=== PATIENT | female | born 1985 | race Caucasian/White ===

== ENCOUNTER 2022-03-24 11:36 | Emergency (ER) | payer OTHER, SELFPAY ==
[2022-03-24 11:50] VITALS: BP 148/95; PULSE 75; RESP 16; TEMP 37; O2SAT 100
--- NOTE | 2022-03-24 11:50 | ED.ARRPALP ---
HPI - Arrhythmia/Palpitations General Chief Complaint: Arrhythmia/Palpitations Stated Complaint: trouble breathing Time Seen by Provider: 03/24/22 11:51 Source: patient Mode of arrival: ambulatory Limitations: no limitations History of Present Illness HPI narrative: Ms. Laws is a 36-year-old female patient presenting to the clinic today with complaints of intermittent palpitations. She reports that she had a lot of palpitations last night and felt as though she was having PVCs. She reports that when she was having these palpitations she felt as though it took her breath away. She denies having symptoms currently. She denies any chest pain or dizziness. She reports that she has had increased stress over the last few weeks. 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 Related Data Home Medications Medication Instructions Recorded Confirmed fluoxetine 20 mg tablet 40 mg PO DAILY 11/26/20 11/26/20 Allergies Allergy/AdvReac Type Severity Reaction Status Date / Time No Known Allergies Allergy Verified 11/26/20 09:21 Review of Systems Review of Systems: Pertinent positives per HPI. Patient denies any fever, chills, rash, headache, visual changes, dizziness, cough, runny nose, sore throat, chest pain, nausea, vomiting, diarrhea, constipation, abdominal pain, or any urinary issues. [facility] Past Medical History Medical History History of abnormal uterine bleeding Uterine ablation PMDD (premenstrual dysphoric disorder) Social History Social History Smoking status: Never smoker Second hand tobacco smoke exposure: No Alcohol intake: current Comments At the time of my signature, I reviewed and agree with the nursing past medical, surgical, social, and family history. There is no relevant family history pertinent to the patient complaint. Exam Narrative: General: Well-developed, well nourished, in no apparent distress Head: Normocephalic, atraumatic. Cardio: Regular rate and rhythm, s1 and s2 normal, no murmur appreciated. Sinus arrhythmia Resp: Clear to auscultation bilaterally, no rhonchi, rales, wheezing or rubs. Extremities: No deformity, no edema, no cyanosis, capillary refill less than 2 seconds, peripheral pulses palpable and strong. Integumentary: [place], warm, and dry, intact without lesion, no rashes. Course Course Emergency Course: Portions of this record may have been created with voice recognition software. Level of Care: Express Care Visit Vital Signs Vital signs: Vital signs reviewed MDM - Arrhythmia/Palpitations MDM Narrative Medical decision making narrative: At the time of visit patient is resting comfortably on the exam table. She denies having any current palpitations. I suggest that the patient follow-up with her PCP to obtain a order for a Holter monitor. Also recommend decreasing stress. Supportive measures were discussed with the patient and she voiced understanding of discharge instructions and agrees to treatment plan. Differential Diagnosis Differential diagnosis: Likely palpitations, anxiety, sinus tachycardia, artial fibrillation, artial flutter, ventricular premature beats, supraventricular tachycardia, ventricular tachycardia, WPW and other ECG Data EKG #1: Attestation: I personally reviewed and interpreted this ECG as follows: ECG completion date: 03/24/22 Interpretation: EKG shows sinus rhythm with sinus arrhythmia with a heart rate of 75 bpm without ectopy. IN intervals 133 ms, QRS duration 78 ms, QT?QTc is 395-423 ms, P?R?T axes 49-66-30 Discharge Plan Discharge Clinical Impression: Palpitations Patient Disposition: Home, Self-Care Condition: Stable Instructions: Antibiotic Form, Heart Palpitations (ED) Additional Instructions
--- NOTE | 2022-03-24 11:51 | ECG_ITS ---
Measurements Intervals [place] Rate: 75 P: 49 ID: 133 QRS: 66 QRSD: 78 T: 30 QT: 395 QTc: 441 Interpretive Statements SINUS RHYTHM WITH SINUS ARRHYTHMIA BORDERLINE ST ABNORMALITY- ANT/INF LEADS BORDERLINE ECG NO PREVIOUS ECG AVAILABLE FOR COMPARISON Electronically Signed On 03-26-2022 11:52:57 CDT by Golden Markham D.O.
== END 2022-03-24 12:17 | disposition home or self-care (01) ==
PROVIDERS: Emergency Provider Nurse Practitioner Family
DX: R00.2 Palpitations (principal)
CPT/HCPCS: 93005; 99213; G0463

== ENCOUNTER 2022-07-08 17:48 | Emergency (ER) | payer OTHER, SELFPAY ==
[2022-07-08] VITALS (12 sets, daily range): BP systolic 107–131; BP diastolic 73–83; PULSE 58–100; RESP 12–18; TEMP 36.7; O2SAT 99–100
--- NOTE | ~2022-07-08 | CT_ITS ---
EXAMINATION: CT brain wo con DATE: 07/08/2022 21:47 INDICATION: dizziness . TECHNIQUE: Computed tomography (CT) of the head was performed without intravenous contrast. The mA wa s adjusted according to patient size. Iterative reconstruction technique was employed. The dose-lengt h product was 605.33 mGy-cm. COMPARISON: None. FINDINGS: No acute intracranial hemorrhage or extra-axial fluid collection. No hydrocephalus, mass, or herniation. No acute ischemic infarct. Unremarkable dural venous sinus attenuation. No acute osseous abnormality. The aerated spaces are clear. IMPRESSION: No acute intracranial process. Reviewed, dictated and finalized at location K. 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
--- NOTE | 2022-07-08 19:25 | ECG_ITS ---
Measurements Intervals [place] Rate: 76 P: 82 IA: 133 QRS: 76 QRSD: 78 T: -27 QT: 337 QTc: 379 Interpretive Statements SINUS RHYTHM WITH SINUS ARRHYTHMIA NONSPECIFIC ST & T-WAVE ABNORMALITY COMPARED TO ECG 03/24/2022 11:53:46 T-WAVE ABNORMALITY NOW PRESENT Electronically Signed On 07-09-2022 11:42:32 [employer]PECT[employer] by Katy Durham M.D.
[2022-07-08 20:07] LABS: Basophils Absolute Auto 0.1 K/mm3 (0.0-0.1); Basophils Percent Auto 1.3 % (0.2-1.2); Eosinophils Absolute Auto 0.1 K/mm3 (0-0.3); Eosinophils Percent Auto 1.7 % (0-4.4); Hematocrit 38.8 % (37.0-47.0); Immature Granulocyte Absolute 0.01 K/mm3 (0.00-0.031); Immature Granulocyte Percent A 0.2 % (0-0.5); Lymphocytes Absolute Auto 2.08 K/mm3 (0.9-3.2); Lymphocytes Percent Auto 39.9 % (18.3-44.2); Mean Corpuscular HGB Conc 33.5 g/dl (32-36); Mean Corpuscular Hemoglobin 32.2 pg (26-34); Mean Platelet Volume 10.6 fl (7.4-10.4); Monocytes Absolute Auto 0.4 K/mm3 (0.1-0.6); Monocytes Percent Auto 7.9 % (2.6-8.5); Neutrophils Absolute Auto 2.6 K/mm3 (1.3-6.7); Platelet Count Result 214 k/mm3 (150-375); Red Blood Count 4.04 M/mm3 (4.2-5.4); Red Cell Distribution Width 12.3 % (11.5-14.5); White Blood Count 5.2 K/mm3 (4.5-10.0)
--- NOTE | 2022-07-08 20:13 | PC.NURSE ---
patient here with dizziness since 1 am states it is hard to get up and move. patients spouse states she had a similar episode over the summer that she believes was a migraine
--- NOTE | 2022-07-08 20:33 | ED.DIZZY ---
HPI - Dizziness General Chief Complaint: Dizziness Stated Complaint: dizzy Time Seen by Provider: 07/08/22 20:33 Source: patient Mode of arrival: wheelchair Limitations: no limitations History of Present Illness HPI Narrative: Patient is a 37-year-old female presenting to the emergency department for evaluation of dizziness. Patient reports dizziness began this morning when she woke up to turn off her alarm clock, turning her head suddenly which caused a spinning sensation. Patient reports a spinning sensation that is worse with movement. She denies loss of vision, focal weakness or numbness. She denies nausea, vomiting. Patient denies any chest pain, lightheadedness. Patient has taken Dramamine today without improvement in her symptoms. She denies fever, chills, infectious type symptoms such as cough, dysuria or hematuria. Patient reports history of this previously over the summer which did resolve and was not as severe as an episode. Patient denies any recent upper respiratory infection or viral type symptoms. Her and son did recently test positive for influenza A but patient has never been symptomatic. She denies ear pain, discharge or ear fullness. No difficulty hearing. No facial asymmetry, facial droop, dysarthria. Patient reports difficulty with ambulation secondary to the dizziness with movement. Symptoms do improve with rest. Patient does report a mild headache. She denies thunderclap sensation. Patient also endorses feeling generally weak without focal weakness or numbness. Related Data Home Medications Medication Instructions Recorded Confirmed fluoxetine 20 mg tablet 40 mg PO DAILY 11/26/20 11/26/20 Allergies Allergy/AdvReac Type Severity Reaction Status Date / Time No Known Allergies Allergy Verified 07/08/22 18:12 Review of Systems Review of Systems: CONSTITUTIONAL: Denies fever, chills, or sweats. EYES: Denies visual changes, redness, or discharge. ENT: Denies rhinorrhea, congestion, sore throat, or otalgia. CARDIOVASCULAR: Denies chest pain, palpitations, or edema. RESPIRATORY: Denies cough or dyspnea. GASTROINTESTINAL: Denies abdominal pain, nausea, vomiting, or diarrhea. GENITOURINARY: Denies dysuria or hematuria. SKIN: Denies rash or itching. MUSCULOSKELETAL: Denies back pain, joint pain, or myalgia. NEUROLOGIC: Patient reports mild headache, she reports generalized weakness without focal weakness or numbness PSYCHIATRIC: Denies anxiety or depression. [facility] Past Medical History Medical History History of abnormal uterine bleeding Uterine ablation PMDD (premenstrual dysphoric disorder) Social History Social History Smoking status: Never smoker Second hand tobacco smoke exposure: No Alcohol intake: current Exam Narrative: GENERAL: Awake, alert, conversant HEAD: Normocephalic, atraumatic. EYES: PERRLA and EOMI. Pt with horizontal nystagmus in right eye, non direction changing. ENT: Nares clear, no rhinorrhea or epistaxis. Mucous membranes moist. NECK: Supple. CHEST: No respiratory distress, breathing even and non labored HEART: Regular rate, sinus rhythm ABDOMEN:Non distended, non tender EXTREMITIES: Normal range of motion. No edema. SKIN: Warm, dry, no rash. NEURO:No focal deficits. Alert and oriented x3. Finger to nose intact bilaterally. EOMs intact without nystagmus. No facial droop/asymmetry noted bilaterally. Grimace intact. Intact sensation in face. Hearing intact bilaterally. Shoulder shrug intact. Strength 5/5 bilateral upper extremities. Strength 5/5 bilateral lower extremities. Reflexes 2+ patellar. Heel to peace intact bilaterally. Ambulatory exam deferred. NIH stroke scale score 0. Course Vital Signs Vital signs: Vital Signs Temperature 36.7 C 07/08/22 18:06 Pulse Rate 100 07/08/22 18:06 Respiratory Rate 18 07/08/22 18:06 Blood Pressu
[2022-07-08 20:38] LABS: Alanine Aminotransferase 15 U/L (6-35); Albumin Level 4.3 g/dL (3.5-5.1); Alkaline Phosphatase 42 U/L (38-126); Anion Gap 5 mmol/L (8-16); Aspartate Amino Transferase 27 U/L (14-36); Bilirubin,Total 0.5 mg/dL (0.2-1.3); Blood Urea Nitrogen 9 mg/dL (7-17); Calcium 8.4 mg/dL (8.4-10.2); Carbon Dioxide 28 mmol/L (22-30); Chloride 103 mmol/L (98-107); Estimated CRCL calculation 72 ml/min; Estimated Glomerular Filt Rate > 60; Glucose 96 mg/dL (65-110); Potassium 3.9 mmol/L (3.4-5.0); Sodium 136 mmol/L (137-145)
[2022-07-08 21:30] LABS: Add Urine Microscopic? YES; Appearance Urine Clear (Clear); Bilirubin Urine Negative (Negative); Blood Urine 1+ (Negative); Color Urine Light Yellow (Yellow); Glucose Urine UA Negative (Negative); Ketones Urine Trace mg/dL (Negative); Leukocyte Esterase Ur 2+ LEU/UL (Negative); Nitrate Urine Negative (Negative); Protein Urine Negative (Negative); Specific Grav Ur 1.015 (1.001-1.035); Urobilinogen Urine 0.2 mg/dL (<2.0); pH Urine 6.5 (5.0-9.0)
[2022-07-08] MEDS: MECLIZINE HCL 25 MG TABLET PO (21:37)
[2022-07-08] MEDS: diphenhydrAMINE HCl INJ 50 MG/ML VIAL 25 MG IV PUSH (21:37)
[2022-07-08] MEDS: SODIUM CHLORIDE 0.9% IV 1,000 ML 999 ML IV CONT (21:37)
[2022-07-08 21:38] LABS: Bacteria Urine Trace /hpf; Mucus Urine Rare /lpf; RBC Urine 0-2 /hpf (0-2); Squamous Epithelial Cell Urine Few /hpf (Few); WBC Urine 21-30 /hpf
[2022-07-08 23:55] LABS: Free T4 Free Thyroxine Reflex 1.08 ng/dL (0.78-2.19)
[2022-07-09 03:10] LABS: Total Triiodothyronine (T3) 1.29 NG/ML (0.97-1.69)
== END 2022-07-08 22:37 | disposition home or self-care (01) ==
PROVIDERS: Emergency Provider Emergency Medicine; PCP Family Medicine
DX: H81.10 Benign paroxysmal vertigo, unspecified ear (principal); R94.31 Abnormal electrocardiogram [ECG] [EKG]
CPT/HCPCS: 36415; 70450; 80053; 81001; 84439; 84443; 84480; 85025; 87086; 87088; 93005; 96361; 96374; 99284; A9270; J1200; J7030

== ENCOUNTER 2023-03-03 17:23 | Emergency (ER) | payer OTHER, SELFPAY ==
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
[2023-03-03 17:38] VITALS: BP 136/74; PULSE 62; RESP 18; TEMP 36.6; O2SAT 100
[2023-03-03 17:39] VITALS: BP 136/74; PULSE 62; RESP 18; TEMP 36.6; O2SAT 100
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
== END 2023-03-03 18:45 | disposition home or self-care (01) ==
PROVIDERS: Emergency Provider Nurse Practitioner Family; PCP Family Medicine
DX: S16.1XXA Strain of muscle, fascia and tendon at neck level, initial encounter (principal); V49.40XA Driver injured in collision with unspecified motor vehicles in traffic accident, initial encounter
CPT/HCPCS: 72050; 99213; G0463

== ENCOUNTER 2023-03-09 11:46 | Outpatient (CLI) | payer OTHER, SELFPAY ==
[2023-03-09 19:45] LABS: Alanine Aminotransferase 16 U/L (6-35); Albumin Level 4.4 g/dL (3.5-5.1); Alkaline Phosphatase 47 U/L (38-126); Anion Gap 7 mmol/L (8-16); Aspartate Amino Transferase 30 U/L (14-36); Bilirubin,Total 0.5 mg/dL (0.2-1.3); Blood Urea Nitrogen 13 mg/dL (7-17); Calcium 9.1 mg/dL (8.4-10.2); Carbon Dioxide 29 mmol/L (22-30); Chloride 101 mmol/L (98-107); Estimated Glomerular Filt Rate > 60; Glucose 89 mg/dL (65-110); Potassium 4.3 mmol/L (3.4-5.0); Sodium 137 mmol/L (137-145)
[2023-03-09 20:33] LABS: Basophils Absolute Auto 0.1 K/mm3 (0.0-0.1); Basophils Percent Auto 1.3 % (0.2-1.2); Eosinophils Absolute Auto 0.1 K/mm3 (0-0.3); Eosinophils Percent Auto 1.5 % (0-4.4); Hematocrit 40.2 % (37.0-47.0); Hemoglobin 13.1 g/dL (12.0-15.0); Immature Granulocyte Absolute 0.02 K/mm3 (0.00-0.031); Immature Granulocyte Percent A 0.3 % (0-0.5); Lymphocytes Absolute Auto 2.26 K/mm3 (0.9-3.2); Lymphocytes Percent Auto 33.4 % (18.3-44.2); Mean Corpuscular HGB Conc 32.6 g/dl (32-36); Mean Corpuscular Hemoglobin 32.4 pg (26-34); Mean Corpuscular Volume 99.5 fl (80-100); Mean Platelet Volume 12.1 fl (7.4-10.4); Monocytes Absolute Auto 0.6 K/mm3 (0.1-0.6); Monocytes Percent Auto 8.7 % (2.6-8.5); Neutrophils Absolute Auto 3.7 K/mm3 (1.3-6.7); Neutrophils Percent Auto 54.8 % (45.5-73.1); Platelet Count Result 184 k/mm3 (150-375); Red Blood Count 4.04 M/mm3 (4.2-5.4); White Blood Count 6.8 K/mm3 (4.5-10.0)
== END 2023-03-09 11:47 | disposition home or self-care (01) ==
PROVIDERS: PCP Family Medicine; Visit Provider Nurse Practitioner Family
DX: Z00.00 Encounter for general adult medical examination without abnormal findings (principal)
CPT/HCPCS: 36415; 80053; 84443; 85025

== ENCOUNTER 2023-11-01 07:21 | Outpatient (CLI) | payer OTHER, SELFPAY ==
--- NOTE | ~2023-11-01 | MM_ITS ---
EXAMINATION: MM screening milena BI w carlos HISTORY: Screening mammogram TECHNIQUE: Craniocaudal and mediolateral oblique 3-D tomosynthesis images were obtained and synthetic 2-D images were generated. CAD analysis was submitted and interpreted. COMPARISON: No prior mammogram is available for comparison at this institution. BREAST PARENCHYMAL COMPOSITION: The breasts are extremely dense, which lowers the sensitivity of mamm ography. FINDINGS: There is no evidence of suspicious mass, calcification, or architectural distortion to sugg est malignancy in either breast. There has been no suspicious interval change. IMPRESSION: 1. No mammographic evidence of malignancy. 2. Recommend routine screening mammography in one year. BI-RADS Category 1: Negative Reviewed, dictated and finalized at location A.
== END 2023-11-01 07:22 | disposition home or self-care (01) ==
LOC: ANHIMG 07:23
PROVIDERS: PCP Family Medicine
DX: Z12.31 Encounter for screening mammogram for malignant neoplasm of breast (principal)
CPT/HCPCS: 77063; 77067

== ENCOUNTER 2024-08-31 08:24 | Emergency (ER) | payer OTHER, SELFPAY ==
--- NOTE | 2024-08-31 08:47 | ED_ITS ---
HPI - URI/Sore Throat General Chief Complaint: Upper Respiratory Infection Stated Complaint: Cough Time Seen by Provider: 08/31/24 08:47 Source: patient Mode of arrival: ambulatory Limitations: no limitations History of Present Illness HPI Narrative: 39-year-old female presents with complaint of cough, chest congestion, fatigue for 4 days. Afebrile. 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 Patient states listens to her lungs and thought that she heard and ?effusion ?to left lower lung. No chest pain or shortness of breath. All systems reviewed and negative except as noted above. Related Data Home Medications ?Medication ?Instructions ?Recorded ?Confirmed ?Last Taken ?Type fluoxetine 20 mg tablet 40 mg PO DAILY 11/26/20 08/31/24 Unknown History Allergies Allergy/AdvReac Type Severity Reaction Status Date / Time No Known Allergies Allergy Verified 08/31/24 08:34 Review of Systems Review of Systems: CONSTITUTIONAL: Denies fever, chills, or sweats. Reports fatigue. EYES: Denies visual changes, redness, or discharge. ENT: Denies rhinorrhea, congestion, sore throat, or otalgia. CARDIOVASCULAR: Denies chest pain, palpitations, or edema. RESPIRATORY: Reports cough. Denies dyspnea. GASTROINTESTINAL: Denies abdominal pain, nausea, vomiting, or diarrhea. GENITOURINARY: Denies dysuria or hematuria. SKIN: Denies rash or itching. MUSCULOSKELETAL: Denies back pain, joint pain, or myalgia. NEUROLOGIC: Denies headache, numbness, or weakness. PSYCHIATRIC: Denies anxiety or depression. All other systems reviewed are negative, except as documented in HPI. [facility] Past Medical History Medical History (Updated 08/31/24 @ 08:51 by Ronna Cabral NP) Basal cell carcinoma Melanoma History of abnormal uterine bleeding Uterine ablation PMDD (premenstrual dysphoric disorder) Social History Social History (Updated 03/08/23 @ 14:58 by Val LINARESA, RMA) Smoking status: Never smoker Second hand tobacco smoke exposure: No Alcohol intake: current Substance use: never Lack of Transportation: No Lack of Food: Never True Current Housing: I Have Housing Concerned About Future Housing: No Difficulty Paying Gas/Electric Bills: No Difficulty Paying for Meds: No Currently Unemployed: No Education: Bachelor's Degree Difficulty w/ Childcare or Family Care: No Comments At time of signature, agree with nursing past medical, surgical, social and family history. There is no relevant family history pertinent to the presenting complaint. Exam Narrative: GENERAL: This is a well-nourished, well-developed patient, in no apparent distress. HEAD: normocephalic, atraumatic. EYES: PERRL. Sclera clear/white. Vision is grossly intact. EARS: External ears normal, auditory canals clear and without drainage, TMs normal without perforation. Hearing grossly intact. NOSE: External nose normal with no obvious nasal discharge, nares without redness, no rhinorrhea. THROAT: Mucous membranes moist, posterior pharynx clear. NECK: Neck supple, non-tender without lymphadenopathy, masses or thyromegaly. CARDIOVASCULAR: Regular rate and rhythm without murmurs, gallops, or rubs. RESPIRATORY: Clear to auscultation. Breath sounds equal bilaterally. No wheezes, rales, or rhonchi. SKIN: warm, Dry, intact with no suspicious lesions or rash, good texture and turgor. NEURO: awake, alert, and oriented to person, place and time. There were no obvious focal neurologic abnormalities. EXTREMITIES: No joint tenderness, effusion, or edema noted. Course Course Level of Care: Express Care Visit Vital Signs Vital signs: Reviewed MDM - URI/Sore Throat MDM Narrative Medical decision making narrative: Negative COVID, influenza test. Patient is well-appearing, nontoxic. Lungs clear to auscultation. Hemodynamically stable. Recommend [id number] medications to treat viral symptoms. Patient is aware of diagnosis, understands and agrees to treatment plan. Anticipatory guidance given. Patient agrees to follow-up as directed and is a stover of reasons to seek care at the emergency department. Portions of this record may have been created with voice recognition software Differential Diagnosis Differential diagnosis: Likely upper respiratory infection, sinusitis, viral infection, bronchitis and influenza Lab Data Labs: Lab Results 08/31/24 Range/Units 08:48 POC Influenza A Ag Negative (Negative) POC Influenza B Ag Negative (Negative) POC SARS CoV-2 Ag Negative (Negative) Discharge Plan Discharge Clinical Impression: Viral upper respiratory tract infection with cough Patient Disposition: Home, Self-Care Condition: Stable Instructions: Upper Respiratory Infection (ED) Additional Instructions: Your COVID and influenza test were negative today. Your symptoms are viral and may last 10-14 days. Take Tylenol or ibuprofen every 6-8 hours as needed for pain and fever. Take medications as prescribed. Drink at least 64 oz water a day. Place cool mist humidifier in bedroom where you sleep. Follow-up with your primary care physician if symptoms are not improving. Patient Language: Chinese Prescriptions: New benzonatate 200 mg capsule 200 mg PO TID PRN (Reason: cough) Qty: 20 0RF methylprednisolone [Medrol (Keyshawn)] 4 mg tablets,dose pack See Rx Instructions PO .COMPLEX Qty: 21 0RF Rx Instructions: orally per package directions No Action ibuprofen 600 mg tablet 600 mg PO Q6H PRN (Reason: pain) Qty: 30 0RF cyclobenzaprine 10 mg tablet 10 mg PO Q8H PRN (Reason: muscle spasm) Qty: 20 0RF fluoxetine 20 mg tablet 40 mg PO DAILY meclizine [Medi-Meclizine] 25 mg tablet 25 mg PO BID PRN (Reason: dizziness) 10 Days Qty: 20 0RF Follow-up/Referrals: Tony Armenta MD [Primary Care Provider] - Time of Disposition: 08:51
[2024-08-31 08:50] LABS: EDCOVIDSCREEN Negative (Negative); EDINFLUASCREEN Negative (Negative); EDINFLUBSCREEN Negative (Negative)
== END 2024-08-31 09:02 | disposition home or self-care (01) ==
PROVIDERS: Emergency Provider Nurse Practitioner Family; PCP Family Medicine
DX: J06.9 Acute upper respiratory infection, unspecified (principal); R05.9 Cough, unspecified; Z20.822 Contact with and (suspected) exposure to COVID-19; Z85.820 Personal history of malignant melanoma of skin; Z85.828 Personal history of other malignant neoplasm of skin
CPT/HCPCS: 87426; 87804; 99213; G0463

== ENCOUNTER 2024-11-09 16:14 | Outpatient (CLI) | payer OTHER, SELFPAY ==
--- NOTE | ~2024-11-09 | MM_ITS ---
EXAMINATION: MM screening milena BI w carlos HISTORY: Screening TECHNIQUE: Craniocaudal and mediolateral oblique 3-D tomosynthesis images were obtained and synthetic 2-D images were generated. CAD analysis was submitted and interpreted. COMPARISON: 11/01/2023 BREAST PARENCHYMAL COMPOSITION: Dense: The breasts are extremely dense, which lowers the sensitivity of mammography. FINDINGS: There is no evidence of suspicious mass, calcification, or architectural distortion to sugg est malignancy in either breast. There has been no suspicious interval change. IMPRESSION: 1. No mammographic evidence of malignancy. 2. Recommend routine screening mammography in one year. BI-RADS Category 1: Negative Reviewed, dictated and finalized at location B.
--- OUTSIDE RECORDS SUMMARY | 2024-11-09 16:16 | XMS_ITS | Clinical Summary ---
Author Organization [facility] Address [address] [place] [address] Care Team Providers Care Assembler Musical Equipment Name Role Phone Андрей Armenta MD Primary Care Provider Source Comments [facility],non-owned Affiliates and Associated Physician Practices is amultiple site organization consisting of ambulatory clinics and hospital sitesin [place], [place], [place] and [place]. This disclosure is being madepursuant to the Care Everywhere program and may not contain all information available regarding this patient. Last updated 18.[facility] Allergies No known active allergies Medications * Be aware that medications may not be up to date on this document. Alwaysverify current medications with the patient. 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 Encounters Date Type Department Care Team Description 09/05/2024 3:10 PM NUT PROCESS HELPER Office Visit [facility] - Dermatology [address] [place] [phone] Mando Juarez MD Multiple benign melanocytic nevi of upper and lower extremities and trunk (Primary Dx); Solar lentiginosis; Seborrheic keratosis; History of nonmelanoma skin cancer; Actinic keratosis; History of melanoma in situ 09/05/2024 Travel from Last 3 Months Immunizations Immunization Administration Dates Next Due INFLUENZA VACCINE 05/16/2022 Family History Medical History Relation Name Comments Cancer - Skin, Melanoma Father Asthma Neg Hx CVA Neg Hx Cancer - Breast Neg Hx Cancer - Other Neg Hx Cancer - Skin, Non Melanoma Neg Hx Eczema Neg Hx Hemophilia Neg Hx Psoriasis Neg Hx Relation Name Status Comments Father Social History Tobacco Use Types Packs/Day Years Used Date Smoking Tobacco: Never Smokeless Tobacco: Never Tobacco Cessation:Counseling Given: Not Answered Alcohol Use Standard Drinks/Week Comments Yes 0 (1 standard drink = 0.6 oz pur e alcohol) Comments No Sex and Gender Information Value Date Recorded Sex Assigned at Not on file Legal Sex Female 9:28 AM CDT Gender Identity Not on file Sexual Orientation Not on file Last Filed Vital Signs Vital Sign Reading Time Taken Comments Blood Pressure 111/62 05/01/2013 2:45 PM CDT Pulse 83 05/01/2013 1:34 PM CDT Temperature 36.9 C (98.4 F) 05/01/2013 1:34 PM CDT Respiratory Rate 16 05/01/2013 1:34 PM CDT Oxygen Saturation 99% 05/01/2013 2:45 PM CDT Inhaled Oxygen Concentration - - Weight 52.2 kg (115 lb) 04/28/2013 10:38 AM CDT Height 170.2 cm (5' 7 ) 04/28/2013 10:38 AM CDT Body Mass Index 18.01 04/28/2013 10:38 AM CDT Plan of Treatment Upcoming Encounters Date Type Department Care Team (Late st Contact Info) Description 03/06/2025 2:00 PM CDT Office Visit [facility] - Dermatology [address] [place] [phone] Mando Juarez MD [address] [place] [address] [address] [place] [address] Health Maintenance Due Date Last Done Comments LIPID TESTING 1983 MAMMOGRAM 1983 PAP SMEAR 1983 HIV SCREENING 1998 HEPATITIS C SCREENING 04/16/2001 DTAP/TDAP/TD VACCINES (1 - Tdap) 2002 HEPATITIS B VACCINE (1 of 3 - 19+ 3-dose series) 2002 COVID-19 VACCINE (1 - 2023-2 5 season) 2024 DEPRESSION SCREENING 07/26/2024 INFLUENZA VACCINE (Season Ended) 2025 05/16/20 22 ZOSTER VACCINE (1 of 2) 2033 HIB VACCINE Aged Out No longer eligi ble based on patient's age to complete this topic HPV VACCINE Aged Out No longer eligi ble based on patient's age to complete this topic MENINGOCOCCAL (Group B) VACC INE SHARED DECISION-MAKING Aged Out No longer eligibl e based on patient's age to complete this topic MENINGOCOCCAL GROUPS A/C/Y/W VACCINE Aged Out No longer eligible b ased on patient's age to complete this topic PNEUMOCOCCAL VACCINE Aged Out No long er eligible based on patient's age to complete this topic Procedures Procedure Name Priority Date/Time Associated Diagnosis Comments MS DESTROY PREMALIG LESION, 2-14 Routine 09/05/2024 3:45 PM NUT PROCESS HELPER Actinic keratosis MS DESTROY PREMALIG LESION, 1ST LESION Routine 09/05/2024 3:44 PM NUT PROCESS HELPER Actinic keratosis from Last 3 Months Results * MS DESTROY PREMALIG LESION, 2-14 (09/05/2024 3:45 PM NUT PROCESS HELPER) Narrative Mando Juarez MD - 09/05/2024 3:45 PM NUT PROCESS HELPER Pippa Cardona MD 09/05/2024 3:45 PM Diagnosis and treatment options discussed. Cryotherapy (Liquid Nitrogen) to 2 lesion(s) for 5-7 seconds each. Number of cycles: 1. Wound care reviewed. Location: right cheek x2 Pippa Cardona MD [facility] Dermatology Resident us Mando Juarez MD PROCEDURE/MINOR SURGICAL ORDERA BLES Final Result * MS DESTROY PREMALIG LESION, 1ST LESION (09/05/2024 3:44 PM NUT PROCESS HELPER) Narrative Mando Juarez MD - 09/05/2024 3:44 PM NUT PROCESS HELPER Pippa Cardona MD 09/05/2024 3:45 PM error do not bill. Mando Juarez MD PROCEDURE/MINOR SURGICAL ORDERA BLES Final Result from Last 3 Months Insurance Care Teams Assembler Musical Equipment Relationship Specialty Start Date End Date Андрей Armenta MD [address] [place] [address] PCP - General 10/18/21
--- OUTSIDE RECORDS SUMMARY | 2024-11-09 16:16 | XMS_ITS | Clinical Summary ---
Author Organization [facility] Address [address] [place] [address] Care Team Providers Care Graphite Grinder Name Role Phone Андрей Armenta MD Primary Care Provider Allergies No known active allergies Medications multivitamin tablet Take 1 tablet by mouth nightly Active FLUoxetine (PROzac) 20 mg tabletIndicatio ns:PMDD (premenstrual dysphoric disorder) TAKE 1 TABLET DAILY 90 tablet 2 09/18/2024 Active Active Problems Problem Noted Date Diagnosed Date Sunburn of first degree 12/23/2021 Neoplasm of uncertain behavior of skin 2 Vascular birthmark 03/16/2020 Menorrhagia with regular cycle 11/22/2018 Overview (11/22/2018): Added automatically from request for surgery [id number] Abnormal uterine bleeding (AUB) 10/29/2017 Dysmenorrhea 10/29/2017 Night sweats 10/29/2017 Multiple benign melanocytic nevi of upper and lower extremities and trunk 03/23/2017 Seborrheic keratoses 03/23/2017 Family history of melanoma 03/20/2016 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 Encounter for routine gynecological examination 06/23/2012 Surgical History Surgery Date Site/Laterality Comments COLON SURGERY Colon Surgery - (Added by TW Conv) [place] LITHOTRIPSY XTRCORP SHOCK WAVE Renal Lithotripsy - (Added by TW Conv) ABLATION MELANOMA RESECTION 10/24/2021 - 11/22/2021 Medical History Medical History Date Comments Personal history of other di seases of the female genital tract History of ovarian cyst - (A dded by TW Conv) Pre-menstrual mood disorder PONV (postoperative nausea and vomiting) Basal cell adenoma Family History Medical History Relation Name Comments No Known Problems Father No Known Problems Mother Relation Name Status Comments Father Mother Social History Tobacco Use Types Packs/Day Years Used Date Smoking Tobacco: Never Smokeless Tobacco: Never Tobacco Cessation:Counseling Given: Not Answered Alcohol Use Standard Drinks/Week Comments Yes 0 (1 standard drink = 0.6 oz pur e alcohol) 6 DRINKS/WEEK AUDIT-C Answer Date Recorded Q1: How often do you have a drink containing alc ohol? 2-3 times a week 06/09/2023 Q2: How many drinks containi ng alcohol do you have on a typical day when you are drinking? 3 or 4 06/09/2023 Q3: How often do you have si x or more drinks on one occasion? Never 06/09/2023 Exercise Vital Sign Answer Date Recorde d On average, how many days pe r week do you engage in moderate to strenuous exercise (like a brisk walk)? 0 days 01/25/2020 On average, how many minutes do you engage in exercise at this level? 0 min 01/25/2020 Comments No Sex and Gender Information Value Date Recorded Sex Assigned at Not on file Legal Sex Female 4:52 AM DRYWALL TAPER Gender Identity Female 03/24/2022 10:59 AM CDT Sexual Orientation Straight 03/24/2022 10 :59 AM CDT Obstetrics History Para Term AB IAB SAB Ectopic Multiple Livin g Live Births 2 2 2 2 2 Date Outcome GA Total Labor Labor/2nd/3rd Weight Sex Type Anes PTL Alessandra A1 A5 Name Clin 2009 Term M Vag-S pont Living 2010 Term F Vag-S pont Living Last Filed Vital Signs Vital Sign Reading Time Taken Comments Blood Pressure 106/70 06/21/2024 10:06 AM DRYWALL TAPER Pulse 65 06/21/2024 10:06 AM DRYWALL TAPER Temperature 36 C (96.8 F) 12/20/2018 10:27 AM CDT Respiratory Rate 21 12/20/2018 11:10 AM CDT Oxygen Saturation 99% 12/20/2018 11:10 AM CDT Inhaled Oxygen Concentration - - Weight 54.9 kg (121 lb) 06/21/2024 10:06 AM DRYWALL TAPER Height 170.2 cm (5' 7 ) 06/21/2024 10:06 AM DRYWALL TAPER Body Mass Index 18.95 06/21/2024 10:06 AM DRYWALL TAPER Plan of Treatment Health Maintenance Due Date Last Done Comments Breast Cancer Screening-Mammogram 1983 Depression Screening 1983 Hepatitis C Screening 1983 Varicella Vaccines (1 of 2 - 13+ 2-dose series) 1996 Cervical Cancer Screening 01/24/2021 01/25/2020, 04/2015 Influenza Vaccine (Season Ended) 2025 05/16/2022 Regular Well Visit/Exam 18-64 06/21/2025 06/21/2024, 06/09/2023, 04/07/2022, Additional history exists DTaP/Tdap/Td Vaccine (3 - Td or Tdap) 01/09/2029 01/09/2019, 05/17/2013 Hepatitis B Screening Completed 08/02/2019 , 02/27/2019, 01/30/2019 HPV Vaccines Aged Out No longer eligi ble based on patient's age to complete this topic Pneumococcal vaccine <65 Aged Out No longer eligible based on patient's age to complete this topic Procedures Procedure Name Priority Date/Time Associated Diagnosis Comments THINPREP IMAGING PAP AND HPV MRNA E6/E7 REFLEX HPV 16,18/45 Routine 01/25/2020 11:22 AM CDT from Last 3 Months or Most Recently Relevant to Health Maintenance Results * ThinPrep Imaging Pap and HPV mRNA E6/E7 Reflex HPV 16,18/45 (01/25/2020 11:22 AM CDT) CLINICAL INFORMATION: Information not provided [facility] LMP 12/30/19 [facility] Previous Pap INFORMATION NOT PROVIDED [facility] Prev. Bx INFORMATION NOT PROVIDED [facility] profectus health research [facility] SOURCE: Cervix, Endocervix [facility] Pap, specimen adequacy Satisfactory for evaluation. Endocervical/mcclure sformation zone component present. [facility] HPV interp Negative for intraepithelial lesion or malignancy. [facility] COMMENTS This Pap test has been evaluated with computer assisted technology. [facility] Injection Maintenance Technician ABC, CT(ASCP) CT screening location: [place] [address] [place] [address] [facility] Comment [facility] Comment: EXPLANATORY NOTE: The Pap is a screening test for cervical cancer. It is not a diagnostic test and is subject to false negative and false positive results. It is most reliable when a satisfactory sample, regularly obtained, is submitted with relevant clinical findings and history, and when the Pap result is evaluated along with historic and current clinical information. Human papillomavirus RNA, High Risk E6/E7 Not Detected Not Detected [facility] Comment: This test was performed using the APTIMA HPV Assay ([employer] This assay detects E6/E7 viral messenger RNA (mRNA) from 14 high-risk HPV types (16,18,31,33,35,39,45,51,52,56,58,59,66,68). The analytical performance characteristics of this assay have been determined by [employer]. The modifications have not been cleared or approved by the FDA. This assay has been validated pursuant to the CLIA regulations and is used for clinical purposes. 01/25/2020 11:2 2 AM CDT 01/29/2020 1:51 PM CDT Narrative [facility] - 01/31/2020 4:57 PM CDT FASTING: UNKNOWN Jeanette Nichole MD LAB CYTOLOGY ORDERABLES Final Result [place] [address] [place] [address] [facility] [address] [place] [address] from Last 3 Months or Most Recently Relevant to Health Maintenance Insurance [facility] CHOICE PLUS ANTHEM ACCESS CHOICE Care Teams Graphite Grinder Relationship Specialty Start Date End Date Андрей Armenta MD PCP - General Family Practice 12/18/20
--- OUTSIDE RECORDS SUMMARY | 2024-11-09 16:16 | XMS_ITS | Referral Summary ---
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 Encounter for routine gynecological examination 06/23/2012 Social History Tobacco Use Types Packs/Day Years [...] on file Legal Sex Female 4:52 AM WATER PLANT PUMP OPERATOR SUPERVISOR Gender Identity Female 03/24/2022 10:59 AM CDT Sexual Orientation Straight 03/24/2022 10 :59 AM CDT Last Filed Vital Signs Vital Sign Reading Time Taken Comments Blood Pressure 106/70 06/21/2024 10:06 AM WATER PLANT PUMP OPERATOR SUPERVISOR Pulse 65 06/21/2024 10:06 AM WATER PLANT PUMP OPERATOR SUPERVISOR Temperature 36 C (96.8 F) 12/20/2018 10:27 AM CDT Respiratory Rate 21 12/20/2018 11:10 AM CDT Oxygen Saturation 99% 12/20/2018 11:10 AM CDT Inhaled Oxygen Concentration - - Weight 54.9 kg (121 lb) 06/21/2024 10:06 AM WATER PLANT PUMP OPERATOR SUPERVISOR Height 170.2 cm (5' 7 ) 06/21/2024 10:06 AM WATER PLANT PUMP OPERATOR SUPERVISOR Body Mass Index 18.95 06/21/2024 10:06 AM WATER PLANT PUMP OPERATOR SUPERVISOR Plan of Treatment Not on file Procedures Procedure Name Priority Date/Time Associated Diagnosis Comments THINPREP IMAGING PAP AND HPV MRNA E6/E7 REFLEX HPV 16,18/45 Routine 01/25/2020 11:22 AM CDT from Last 3 Months or Most Recently Relevant to Health Maintenance Results * ThinPrep Imaging Pap and HPV mRNA E6/E7 Reflex HPV 16,18/45 (01/25/2020 11:22 AM CDT) CLINICAL INFORMATION: Information not provided [facility] LMP 12/30/19 [facility] Previous Pap INFORMATION NOT PROVIDED [facility] Prev. Bx INFORMATION NOT PROVIDED [facility] SOURCE: Cervix, Endocervix [facility] Pap, specimen adequacy Satisfactory for evaluation. Endocervical/mcclure sformation zone component present. [facility] HPV interp Negative for intraepithelial lesion or malignancy. [facility] COMMENTS This Pap test has been evaluated with computer assisted technology. [facility] Director Imaging ABC, CT(ASCP) CT screening location: [place] [address] [address] [place] [address] [facility] Comment [facility] Comment: EXPLANATORY NOTE: The Pap is a [...] High Risk E6/E7 Not Detected Not Detected [facility] Comment: This test was performed using the APTIMA HPV Assay ([employer] This assay detects E6/E7 viral messenger RNA (mRNA) from 14 high-risk HPV types (16,18,31,33,35,39,45,51,52,56,58,59,66,68). The analytical performance characteristics of this assay have been determined by [employer]. The modifications have not been cleared or approved by the FDA. This assay has been validated pursuant to the CLIA regulations and is used for clinical purposes. 01/25/2020 11:2 2 AM CDT 01/29/2020 1:51 PM CDT Narrative [facility] [[email or web address]] - 01/31/2020 4:57 PM CDT FASTING: UNKNOWN Jeanette Nichole MD LAB CYTOLOGY ORDERABLES Final Result [place] [address] [address] [place] [phone] [facility] [address] [place] [phone] from Last 3 Months or Most Recently Relevant to Health Maintenance Insurance [facility] CHOICE PLUS [facility] HMO/PPO Address: [address] [address] [place] [address] [facility] CHO[facility] Care Teams Sand Temperer Relationship Specialty Start Date End Date Андрей Armenta MD PCP - General Family Practice 12/18/20
--- OUTSIDE RECORDS SUMMARY | 2024-11-09 16:16 | XMS_ITS | Encounter Summary ---
Author Organization [facility] Address [address] [place] [address] Phone Care Team Providers Care Radiology Special Procedure Tech Name Role Phone Unknown, Notinfile Primary Care Provider Unavail able Johnny Blanchard Primary Care Provider [phone] No, Physician Primary Care Provider [phone] Андрей Armenta MD Primary Care Provider Encounter Details Date Type Department Care Team (Latest Contact Info) Description 11/03/2017 Orders Only [facility] CONVERSION Scanning, Provider Social History Tobacco Use Types Packs/Day Years Used Date Smoking Tobacco: Never Assessed Comments Unknown Sex and Gender Information Value Date Recorded Sex Assigned at Not on file Legal Sex Female 4:52 AM STRATEGY PLANNING CONSULTANT Gender Identity Female 03/24/2022 10:59 AM CDT Sexual Orientation Straight 03/24/2022 10 :59 AM CDT documented as of this encounter Plan of Treatment Not on file documented as of this encounter Procedures Procedure Name Priority Date/Time Associated Diagnosis Comments OBSTETRIC/GYNECOLOGY ULTRASONOGRAPHY REPORT 11/03/2017 1:42 PM CDT documented in this encounter Results * OBSTETRIC/GYNECOLOGY ULTRASONOGRAPHY REPORT (11/03/2017 1:42 PM CDT) Anatomical Region Laterality Modality Ultrasound us Provider Scanning IMG OB US PROCEDURES Final Res ult documented in this encounter Visit Diagnoses Not on filedocumented in this encounter Care Teams Radiology Special Procedure Tech Relationship Specialty Start Date End Date Unknown, Notinfile PCP - General 11/03/17 11/14/17 Johnny Blanchard [address] [place] [address] PCP - General 11/15/17 08/30/19 No, Physician PCP - General 08/31/19 12/17/20 Андрей Armenta MD PCP - General Family Practice 12/18/20 documented as of this encounter
--- OUTSIDE RECORDS SUMMARY | 2024-11-09 16:16 | XMS_ITS | Encounter Summary ---
Author Organization [facility] Address [address] [place] [address] Care Team Providers Care Livestock Trader Name Role Phone Андрей Armenta MD Primary Care Provider Reason for Visit * Reason Onset Date Comments Appointment 09/24/2022 Encounter Details Date Type Department Care Team (Late st Contact Info) Description 09/24/2022 Telephone [facility] [address] [place] [address] Mando Juarez MD [address] [place] [address] DEPT OF DERMATOLOGY [place], [place] [id number] Appointment Social History Tobacco Use Types Packs/Day Years Used Date Smoking Tobacco: Never Smokeless Tobacco: Never Alcohol Use Standard Drinks/Week Comments Yes 0 (1 standard drink = 0.6 oz pur e alcohol) Comments No Sex and Gender Information Value Date Recorded Sex Assigned at Not on file Legal Sex Female 9:28 AM CDT Gender Identity Not on file Sexual Orientation Not on file documented as of this encounter Miscellaneous Notes * Telephone Encounter - Karina Rene - 09/24/2022 2:51 PM CST Mrs. Laws would like to schedule a ed&c with Dr Juarez. She missed previous appointment. ERLESS GRINDER SET UP OPERATOR documented in this encounter Plan of Treatment Upcoming Encounters Date Type Department Care Team (Late st Contact Info) Description 03/06/2025 2:00 PM CDT Office Visit [facility] - Dermatology [address], [place] [address] Mando Juarez MD [facility] [facility] [address] DEPT [place] [address] documented as of this encounter Visit Diagnoses Not on filedocumented in this encounter Care Teams Livestock Trader Relationship Specialty Start Date End Date Андрей Armenta MD [address] [place] [address] PCP - General 10/18/21 documented as of this encounter
== END 2024-11-09 16:15 | disposition home or self-care (01) ==
PROVIDERS: PCP Family Medicine; Visit Provider Registered Nurse School
DX: Z12.31 Encounter for screening mammogram for malignant neoplasm of breast (principal)
CPT/HCPCS: 77063; 77067

== ENCOUNTER 2024-11-16 15:26 | Emergency (ER) | payer OTHER, SELFPAY ==
--- NOTE | ~2024-11-16 | XR_ITS ---
HISTORY: Pain/swelling sesamoid area Rt foot s/p running 4 miles COMPARISON: None TECHNIQUE: 3 views of the right foot were performed FINDINGS: Sesamoid separation is identified, with the osseous structure demonstrating an irregular ma rgin consistent with acute fracture. No significant degenerative disease is noted. The base of the fifth metatarsal is intact. No calcaneal spur is noted. Moderate surrounding soft tissue swelling is present. IMPRESSION: Displaced sesamoid fracture, as detailed above Reviewed, dictated and finalized at location A.
[2024-11-16 15:37] VITALS: BP 137/84; PULSE 52; RESP 16; TEMP 36.6; O2SAT 100
--- NOTE | 2024-11-16 16:06 | ED.LOWEXIN ---
HPI - Extremity Injury (Lower) General Chief Complaint: Extremity Injury, Lower Stated Complaint: R FOOT PAIN Time Seen by Provider: 11/16/24 16:07 Source: patient Mode of arrival: ambulatory Limitations: no limitations History of Present Illness HPI Narrative: 39 y/o female presented for c/o right great toe pain and swelling (plantar surface). Onset yesterday. Symptoms started after running 4 miles, per her usual routine. Says she woke the next day with the symptoms. Denies numbness, tingling or weakness. Reports pain with walking or any movement. Related Data Home Medications ?Medication ?Instructions ?Recorded ?Confirmed ?Last Taken ?Type fluoxetine 20 mg tablet 40 mg PO DAILY 11/26/20 11/16/24 Unknown History Allergies Allergy/AdvReac Type Severity Reaction Status Date / Time No Known Allergies Allergy Verified 11/16/24 15:34 Review of Systems Review of Systems: CONSTITUTIONAL: Denies body aches, fever, chills EYES: Denies visual changes ENT: Denies rhinorrhea, congestion CARDIOVASCULAR: Denies chest pain, palpitations, or edema. RESPIRATORY: Denies cough or dyspnea. SKIN: Denies rash, itching, or wounds. MUSCULOSKELETAL: reports right foot/toe pain NEUROLOGIC: Denies numbness, tingling, or weakness. All systems reviewed & are unremarkable except as noted in HPI and below PMFSH Past Medical History Medical History (Updated 11/16/24 @ 16:28 by Angela Chambers, BENNIE) Basal cell carcinoma Melanoma History of abnormal uterine bleeding Uterine ablation PMDD (premenstrual dysphoric disorder) Social History Social History (Updated 03/08/23 @ 14:58 by Val Bueno A, RMA) Smoking status: Never smoker Second hand tobacco smoke exposure: No Alcohol intake: current Substance use: never Lack of Transportation: No Lack of Food: Never True Current Housing: I Have Housing Concerned About Future Housing: No Difficulty Paying Gas/Electric Bills: No Difficulty Paying for Meds: No Currently Unemployed: No Education: Bachelor's Degree Difficulty w/ Childcare or Family Care: No Comments At time of signature, I have reviewed and agree with nursing past medical, surgical, social and family history unless otherwise noted. Please see nursing chart for further information. There is no relevant family history pertinent to the presenting complaint Exam Narrative: GENERAL: Well-appearing CHEST: No respiratory distress. HEART: Regular rate and rhythm. Normal and equal peripheral pulses. EXTREMITIES: right foot has normal strength and sensation, decreased range of motion of right 1st toe due to pain with movement. Swelling and point tenderness to the plantar surface of the 1st MTP. No ecchymosis, No open wounds, or obvious deformity; alignment normal, pulse palpable and equal bilaterally, skin warm, dry, pink. Capillary refill less than 3 seconds. Gait slow with limp. SKIN: Warm, dry NEURO: Alert and oriented x3. PSYCH: Normal mood and affect Course Course Emergency Course: Patient is aware of diagnosis, understands and agrees to treatment plan. Anticipatory guidance given. Patient agrees to follow-up as directed and is aware of reasons to seek care at the emergency department. Portions of this record may have been created with voice recognition software Level of Care: Express Care Visit Vital Signs Vital signs: Vital Signs Temperature 98 F 11/16/24 15:37 Pulse Rate 52 L 11/16/24 15:37 Respiratory Rate 16 11/16/24 15:37 Blood Pressure 137/84 11/16/24 15:37 Pulse Oximetry 100 11/16/24 15:37 Temperature 98 F 11/16/24 15:37 Pulse Rate 52 L 11/16/24 15:37 Respiratory Rate 16 11/16/24 15:37 Blood Pressure 137/84 11/16/24 15:37 Pulse Oximetry 100 11/16/24 15:37 Reviewed MDM - Extremity Injury (Lower) MDM Narrative Medical decision making narrative: discussed physical exam findings and xray. Shared decision making regarding OCL and crutches vs walking boot. Pt elects to purchase a walking boot. Advised supportive measures and s/s to go to the ER. Differential Diagnosis Differential diagnosis: Likely fracture of toe, ankle fracture and other (foot fracture, contusion, mortons neuroma, metatarsalgia) Imaging Data Radiologist's impression: Patient: Ella Laws : 1985 MR#: [id number] Age: 39 Acct:[id number] Loc: [facility] ADM Date: 11/16/24Attending Dr: Ordering Physician: Angela Chambers APRN Date of Service: 11/16/24 Procedure(s): XR foot RT min 3V Accession Number(s): [id number] cc: Angela Chambers APRN; Андрей Armenta MD~ HISTORY: Pain/swelling sesamoid area Rt foot s/p running 4 miles COMPARISON: None TECHNIQUE: 3 views of the right foot were performed FINDINGS: Sesamoid separation is identified, with the osseous structure demonstrating an irregular margin consistent with acute fracture. No significant degenerative disease is noted. The base of the fifth metatarsal is intact. No calcaneal spur is noted. Moderate surrounding soft tissue swelling is present. IMPRESSION: Displaced sesamoid fracture, as detailed above Discharge Plan Discharge Clinical Impression: Fracture of sesamoid bone Patient Disposition: Home Condition: Stable Instructions: Foot Fracture in Adults (ED), Walking Boot (ED) Additional Instructions: You plan to purchase a walking boot from a medical supply store No running or jumping. limit walking. Keep the foot elevated, apply ice as needed Take Tylenol or ibuprofen as needed for pain Follow up with clinical reimbursement specialist, call tomorrow to schedule an appointment. Follow up with primary care provider as needed Go to the ER for worsening symptoms or concerns Patient Language: Urdu Prescriptions: No Action ibuprofen 600 mg tablet 600 mg PO Q6H PRN (Reason: pain) Qty: 30 0RF cyclobenzaprine 10 mg tablet 10 mg PO Q8H PRN (Reason: muscle spasm) Qty: 20 0RF benzonatate 200 mg capsule 200 mg PO TID PRN (Reason: cough) Qty: 20 0RF methylprednisolone [Medrol (Keyshawn)] 4 mg tablets,dose pack See Rx Instructions PO .COMPLEX Qty: 21 0RF Rx Instructions: orally per package directions fluoxetine 20 mg tablet 40 mg PO DAILY meclizine [Medi-Meclizine] 25 mg tablet 25 mg PO BID PRN (Reason: dizziness) 10 Days Qty: 20 0RF Follow-up/Referrals: Eugene Herrera MD [Physician] - (sesamoid fracture ) Tony Armenta MD [Primary Care Provider] - Time of Disposition: 16:27
== END 2024-11-16 16:31 | disposition home or self-care (01) ==
PROVIDERS: Emergency Provider Nurse Practitioner Family; PCP Family Medicine
DX: S92.811A Other fracture of right foot, initial encounter for closed fracture (principal); X50.3XXA Overexertion from repetitive movements, initial encounter; Y93.02 Activity, running; Z85.828 Personal history of other malignant neoplasm of skin; Z85.820 Personal history of malignant melanoma of skin
CPT/HCPCS: 73630; 99213; G0463

== ENCOUNTER 2024-11-27 15:17 | Outpatient (CLI) | payer OTHER, SELFPAY ==
--- NOTE | ~2024-11-27 | CT_ITS ---
EXAMINATION: CT foot RT wo con DATE: 11/27/2024 15:33 INDICATION: Right foot stress fracture. TECHNIQUE: High resolution computed tomography (CT) of the right foot was performed without intraveno us contrast. Additional sagittal and coronal reconstructions were performed. Automated exposure contr ol and iterative reconstruction technique were employed. The dose-length product was 269.80 mGy-cm. COMPARISON: Right foot radiographs dated 11/20/2024 FINDINGS: Bone alignment is normal. Fragmentation of the tibial sesamoid of the first metatarsal, some of the f ragments demonstrating corticated margins which appear chronic although portions of the distal planta r fragment do not appear corticated suggesting this may be more recent but present on radiographs fro m 11/16/2024. No other acute fracture. No periosteal reaction to suggest stress reaction although sens itivity for early stress injury is lower on CT than MRI. Joint spaces are relatively preserved throug hout. There is a corticated ossicle anterior to the tip of the lateral malleolus consistent with sequ yanci of chronic anterior talofibular ligament sprain. Soft tissues are unremarkable. No ankle joint ef fusion. IMPRESSION: 1. Fragmentation of the tibial sesamoid of the first metatarsal some of which appears chronic but barbara e of which appears more recent without definitive cortication. 2. Heterotopic ossicles along the anterior talofibular ligament consistent with sequela of chronic sp rain. Reviewed, dictated and finalized at location A. IMPRESSION: 1. Fragmentation of the tibial sesamoid of the first metatarsal some of which a ppears chronic but some of which appears more recent without definitive cortica tion. 2. Heterotopic ossicles along the anterior talofibular ligament consistent with sequela of chronic sprain.
== END 2024-11-27 15:18 | disposition home or self-care (01) ==
PROVIDERS: PCP Orthopaedic Surgery; Visit Provider Orthopaedic Surgery
DX: S92.811A Other fracture of right foot, initial encounter for closed fracture (principal); X58.XXXA Exposure to other specified factors, initial encounter
CPT/HCPCS: 73700